=== PATIENT | female | born 2000 | race Caucasian/White ===

== ENCOUNTER → 2022-03-25 | Outpatient (CLI) | payer BC ==
[~2022-03-25] MED LIST: AUGMENTIN ES-6100 ML PO; PRELONE5 MG/5 ML PO; TYLENOL W/ CODEI5 ML PO; ZITHROMAX200 MG/51 PO
[2022-03-26 10:06] LABS: MUMPS ANTIBODIES, IGG 34.4 AU/mL (Immune >10.9); VARICELLA-ZOSTER IGG <135 index (Immune >165)
[2022-03-26 11:06] LABS: HEPATITIS B SURFACE AG Negative (Negative)
== END | disposition home or self-care (01) ==
LOC: LAB 10:32
PROVIDERS: ATTEND Pediatrics
DX: Z02.0 Encounter for examination for admission to educational institution (principal)

== ENCOUNTER → 2022-04-10 | Outpatient (CLI) | payer BC | END | disposition home or self-care (01) | LOC: RAD 11:16 | PROVIDERS: ATTEND Pediatrics | DX: Z11.1 Encounter for screening for respiratory tuberculosis (principal) ==

== ENCOUNTER → 2023-02-20 | Outpatient (CLI) | payer BC ==
[2023-02-22 17:06] LABS: TB1 Ag VALUE 0.02 IU/mL (.)
== END | disposition home or self-care (01) ==
LOC: LAB 10:49
PROVIDERS: ATTEND Pediatrics
DX: R76.11 Nonspecific reaction to tuberculin skin test without active tuberculosis (principal)